=== PATIENT | female | born 1980 | race Caucasian/White ===

== ENCOUNTER → 2024-09-02 16:59 | Outpatient (CLI) | payer OTHER, SELFPAY ==
[2024-09-02 18:25] LABS: Influenza A - CEPHEID Flu A NEGATIVE (NEGATIVE); Influenza B - CEPHEID Flu B POSITIVE (NEGATIVE); Respiratory Syncytial Virus Negative (Negative)
[2024-09-02 18:35] LABS: COVID-19 CEPHEID 4-PLEX PCR Negative (Negative)
== END ==
PROVIDERS: Visit Provider Student in an Organized Health Care Education/Training Program
DX: R05.1 Acute cough (principal)
CPT/HCPCS: 0241U; 87070